=== PATIENT | male | born 1960 | race American Indian/Alaskan Native ===

== ENCOUNTER 2018-06-11 23:00 | Emergency (ER) | payer MEDICAID ==
[2018-06-11] MEDS ORDERED: ZOFRAN IV ONE (23:43)
[2018-06-11] MEDS ORDERED: MORPHINE IV ONE (23:43)
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
[2018-06-12 00:20] LABS: Basophils % (Auto) 0.2 % (0.0-1.8); Eosinophils # (Auto) 0.1 K/mm3 (0.0-0.4); Eosinophils % (Auto) 0.5 % (0.0-4.3); Hematocrit 54.1 % (35.5-45.6); Hemoglobin 18.4 gm/dl (11.8-15.2); Lymphocytes # (Auto) 1.2 K/mm3 (1.2-5.4); Lymphocytes % (Auto) 10.2 % (13.4-35.0); Mean Corpuscular HGB Conc 34 % (32-34); Mean Corpuscular Volume 99 fl (84-94); Monocytes # (Auto) 0.6 K/mm3 (0.0-0.8); Monocytes % (Auto) 4.7 % (0.0-7.3); Platelet Count 281 K/mm3 (140-440); Red Blood Count 5.49 M/mm3 (3.65-5.03); Red Cell Distribution Width 14.6 % (13.2-15.2)
[2018-06-12 00:55] LABS: BUN/Creatinine Ratio 16; Blood Urea Nitrogen 19 mg/dL (9-20); Calcium 9.8 mg/dL (8.4-10.2); Hemolysis Index 24
--- NOTE | 2018-06-12 01:05 | XRay Report ---
PROCEDURE: XR CHEST 1V AP TECHNIQUE: A portable semiupright of the chest was obtained. HISTORY: dyspnea COMPARISONS: None FINDINGS: The heart size and vascularity appear normal. There are no acute infiltrates or effusions. The skelet al structures do not show any acute changes. IMPRESSION: No acute cardiopulmonary process.. This document is electronically signed by Yehuda Das MD., June 12 2018 01:03:22 AM ET
[2018-06-12] MEDS ORDERED: MORPHINE IV ONE (01:11)
[2018-06-12 02:40] VITALS: BP 135/84
--- NOTE | 2018-06-12 02:51 | Cat Scan Report ---
PROCEDURE: CT ANGIO CHEST TECHNIQUE: CTA of the chest obtained with intravenous contrast. HISTORY: rib fractures hypoxia COMPARISONS: None FINDINGS: No evidence for acute pulmonary embolus. Heart is mildly enlarged. Coronary calcifications noted. Great vessels are normal in caliber Moderate to severe bullous and emphysematous changes seen in the upper to midlung zones. There is a s mall pneumothorax seen in the anterior left lower lobe pleural space involving approximately 10% lung volume. Close continued follow-up recommended. Partially visualized upper abdomen is unremarkable.. IMPRESSION: small pneumothorax seen in the anterior left lower lobe pleural space involving approximately 10% kenna g volume. Close continued follow-up recommended.. Moderate to severe bullous and emphysematous changes seen in the upper to midlung zones Mild cardiomegaly. Coronary calcifications. This document is electronically signed by Kalpesh Mcknight MD., June 12 2018 02:49:37 AM ET
== END 2018-06-12 03:10 | disposition left against medical advice (07) ==
LOC: ED 23:00
DX: J96.01 Acute respiratory failure with hypoxia (principal); J44.1 Chronic obstructive pulmonary disease with (acute) exacerbation; J93.9 Pneumothorax, unspecified; I10 Essential (primary) hypertension; F17.200 Nicotine dependence, unspecified, uncomplicated; F12.10 Cannabis abuse, uncomplicated
CPT/HCPCS: 36415; 71045; 71275; 80048; 82140; 84484; 85025; 96374; 96375; 96376; 99291; J2270; J2405; Q9967